=== PATIENT | female | born 1940 | race Native Hawaiian/Other Pacific Islander ===

== ENCOUNTER 2016-04-09 08:36 | Outpatient (CLI) | payer OTHER ==
[2016-04-09 09:19] LABS: PLATELET COUNT 231 K/uL (152-353)
[2016-04-09 10:01] LABS: POTASSIUM 5.8 mmol/L (3.6-5.2)
== END 2016-04-09 19:21 | disposition home or self-care (01) ==
LOC: LABW 08:36
PROVIDERS: Internal Medicine Nephrology
DX: I12.9 Hypertensive chronic kidney disease with stage 1 through stage 4 chronic kidney disease, or unspecified chronic kidney disease (principal); N18.4 Chronic kidney disease, stage 4 (severe); D63.1 Anemia in chronic kidney disease; D50.8 Other iron deficiency anemias
CPT/HCPCS: 36415; 80053; 81000; 82306; 82570; 82607; 82728; 82746; 83540; 83550; 83735; 83970; 84100; 84155; 85027; 85044

== ENCOUNTER 2016-04-12 08:51 | Outpatient (CLI) | payer OTHER | END 2016-04-12 09:51 | disposition home or self-care (01) | LOC: RESP 08:51 | DX: I35.8 Other nonrheumatic aortic valve disorders (principal); I10 Essential (primary) hypertension | CPT/HCPCS: 93306 ==

== ENCOUNTER 2016-05-04 08:34 | Outpatient (CLI) | payer OTHER ==
[2016-05-04 09:15] LABS: POTASSIUM 4.9 mmol/L (3.6-5.2)
== END 2016-05-04 19:08 | disposition home or self-care (01) ==
LOC: LABW 08:34
PROVIDERS: Internal Medicine
DX: R06.02 Shortness of breath (principal); Z79.899 Other long term (current) drug therapy; Z51.81 Encounter for therapeutic drug level monitoring
CPT/HCPCS: 36415; 80048; 83880; 84439; 84443; 85379

== ENCOUNTER 2016-05-07 09:21 | Outpatient (CLI) | payer OTHER | END 2016-05-07 19:52 | disposition home or self-care (01) | LOC: US 09:21 | DX: R10.9 Unspecified abdominal pain (principal) ==

== ENCOUNTER 2016-05-22 08:46 | Outpatient (CLI) | payer OTHER | END 2016-05-22 09:46 | disposition home or self-care (01) | LOC: LABW 08:46 | DX: K80.50 Calculus of bile duct without cholangitis or cholecystitis without obstruction (principal) | CPT/HCPCS: 36415; 80076 ==

== ENCOUNTER 2016-06-09 19:59 | Emergency (ER) | payer OTHER ==
[~2016-06-09] VITALS: Ht 165.1 cm; Wt 78.0 kg
[2016-06-09] MEDS ORDERED: FOLI1TAB26 PO (20:30)
[2016-06-09] MEDS ORDERED: HYDRALAZINE100 MG PO (20:31)
[2016-06-09] MEDS ORDERED: ALLO100T22 PO (20:31)
[2016-06-09] MEDS ORDERED: FERREX 150150 MG PO (20:32)
[2016-06-09] MEDS ORDERED: LEVOFLOXACIN500 MG OR (20:33)
[2016-06-09] MEDS ORDERED: BENZONATATE100 MG PO (20:33)
[2016-06-09] MEDS ORDERED: CARTIA XT240 MG/24 PO (20:34)
[2016-06-09] MEDS ORDERED: CITALOPRAM20 MG PO (20:35)
[2016-06-09 21:22] LABS: PLATELET COUNT 300 K/uL (152-353)
[2016-06-09 22:05] LABS: POTASSIUM 4.4 mmol/L (3.6-5.2)
[2016-06-09 23:53] VITALS: BP 140/68; TEMP 97.3
== END 2016-06-09 23:54 | disposition home or self-care (01) ==
LOC: ED 19:59
DX: R10.84 Generalized abdominal pain (principal); K59.09 Other constipation; R11.2 Nausea with vomiting, unspecified; N18.9 Chronic kidney disease, unspecified; M47.896 Other spondylosis, lumbar region; M12.812 Other specific arthropathies, not elsewhere classified, left shoulder; M12.811 Other specific arthropathies, not elsewhere classified, right shoulder
CPT/HCPCS: 36415; 80053; 81000; 84443; 85027; 96361; 96374; 99284; J2405

== ENCOUNTER 2016-07-09 14:59 | Outpatient (CLI) | payer OTHER ==
[~2016-07-09 14:59] MED LIST: ALLO100T22 PO; BENZONATATE100 MG PO; CARTIA XT240 MG/24 PO; CITALOPRAM20 MG PO; FERREX 150150 MG PO; FOLI1TAB26 PO; HYDRALAZINE100 MG PO; LEVOFLOXACIN500 MG OR
[2016-07-09 15:24] LABS: PLATELET COUNT 262 K/uL (152-353)
[2016-07-09 16:06] LABS: POTASSIUM 4.5 mmol/L (3.6-5.2)
== END 2016-07-09 15:59 | disposition home or self-care (01) ==
LOC: LABW 14:59
PROVIDERS: Internal Medicine Nephrology
DX: I12.9 Hypertensive chronic kidney disease with stage 1 through stage 4 chronic kidney disease, or unspecified chronic kidney disease (principal); N18.4 Chronic kidney disease, stage 4 (severe); D63.1 Anemia in chronic kidney disease; E11.22 Type 2 diabetes mellitus with diabetic chronic kidney disease
CPT/HCPCS: 36415; 80048; 82607; 82728; 82746; 83540; 83550; 85027; 85044

== ENCOUNTER 2016-07-13 08:55 | Outpatient (CLI) | payer OTHER ==
[2016-07-13 09:17] LABS: PLATELET COUNT 274 K/uL (152-353)
[2016-07-13 09:21] LABS: POTASSIUM 4.8 mmol/L (3.6-5.2)
== END 2016-07-13 19:07 | disposition home or self-care (01) ==
LOC: LABW 08:55
PROVIDERS: Internal Medicine Gastroenterology
DX: R11.2 Nausea with vomiting, unspecified (principal)
CPT/HCPCS: 36415; 80048; 80076; 82150; 83690; 85027

== ENCOUNTER 2016-09-06 08:54 | Outpatient (CLI) | payer OTHER | END 2016-09-06 19:15 | disposition home or self-care (01) | LOC: RAD 08:54 | DX: M19.041 Primary osteoarthritis, right hand (principal); M19.042 Primary osteoarthritis, left hand; M19.071 Primary osteoarthritis, right ankle and foot; M19.072 Primary osteoarthritis, left ankle and foot; M85.89 Other specified disorders of bone density and structure, multiple sites ==

== ENCOUNTER 2016-10-24 08:33 | Outpatient (CLI) | payer OTHER ==
[2016-10-24 08:58] LABS: PLATELET COUNT 275 K/uL (152-353)
[2016-10-24 09:09] LABS: POTASSIUM 5.7 mmol/L (3.6-5.2)
== END 2016-10-24 19:10 | disposition home or self-care (01) ==
LOC: LABW 08:33
PROVIDERS: Internal Medicine Nephrology
DX: I12.9 Hypertensive chronic kidney disease with stage 1 through stage 4 chronic kidney disease, or unspecified chronic kidney disease (principal); N18.4 Chronic kidney disease, stage 4 (severe); D64.89 Other specified anemias; N25.81 Secondary hyperparathyroidism of renal origin
CPT/HCPCS: 36415; 80053; 81000; 83735; 84100; 85027

== ENCOUNTER 2017-02-27 08:42 | Outpatient (CLI) | payer OTHER ==
[2017-02-27 09:50] LABS: PLATELET COUNT 233 K/uL (152-353)
[2017-02-27 10:42] LABS: POTASSIUM 5.1 mmol/L (3.6-5.2)
== END 2017-02-27 22:47 | disposition home or self-care (01) ==
LOC: US 08:42
PROVIDERS: Internal Medicine
DX: I12.9 Hypertensive chronic kidney disease with stage 1 through stage 4 chronic kidney disease, or unspecified chronic kidney disease (principal); N18.4 Chronic kidney disease, stage 4 (severe); D63.1 Anemia in chronic kidney disease; E03.8 Other specified hypothyroidism; E79.0 Hyperuricemia without signs of inflammatory arthritis and tophaceous disease; E04.1 Nontoxic single thyroid nodule; R82.99 Other abnormal findings in urine
CPT/HCPCS: 36415; 80053; 80061; 81000; 82306; 82570; 82607; 82728; 82746; 83540; 83550; 83735; 83970; 84100; 84155; 84439; 84443; 84550; 85027; 85044; 87086; 87088

== ENCOUNTER 2017-05-21 11:00 | Outpatient (CLI) | payer OTHER ==
[2017-05-21 11:23] LABS: PLATELET COUNT 201 K/uL (152-353)
[2017-05-21 12:44] LABS: POTASSIUM 4.5 mmol/L (3.6-5.2)
== END 2017-05-21 19:07 | disposition home or self-care (01) ==
LOC: LABW 11:00
PROVIDERS: Internal Medicine
DX: N18.3 Chronic kidney disease, stage 3 (moderate) (principal)
CPT/HCPCS: 36415; 80053; 81000; 82043; 82306; 82330; 82570; 83735; 83970; 84100; 84155; 84550; 85027

== ENCOUNTER 2017-10-04 08:28 | Outpatient (CLI) | payer OTHER ==
[2017-10-04 08:55] LABS: PLATELET COUNT 240 K/uL (152-353)
[2017-10-04 09:22] LABS: POTASSIUM 5.4 mmol/L (3.6-5.2)
== END 2017-10-04 19:05 | disposition home or self-care (01) ==
LOC: CT 08:28
PROVIDERS: Internal Medicine
DX: N18.4 Chronic kidney disease, stage 4 (severe) (principal); E07.89 Other specified disorders of thyroid; G44.211 Episodic tension-type headache, intractable
CPT/HCPCS: 36415; 80053; 81000; 82043; 82330; 82570; 83735; 83970; 84100; 84155; 84439; 84443; 85027

== ENCOUNTER 2018-01-21 17:46 | Emergency (ER) | payer OTHER ==
[~2018-01-21] VITALS: Ht 165.1 cm; Wt 76.2 kg
[2018-01-21] MEDS ORDERED: HYDRALAZINE50 MG PO (18:45)
[2018-01-21] MEDS ORDERED: LEVO0.0529 PO (18:46)
[2018-01-21] MEDS ORDERED: NEURONTIN 100M100 MG PO (18:47)
[2018-01-21] MEDS ORDERED: TRAMADOL HYDROC50 MG PO (18:48)
[2018-01-21 19:47] LABS: PLATELET COUNT 236 K/uL (152-353)
[2018-01-21 20:05] LABS: POTASSIUM 5.1 mmol/L (3.6-5.2)
[2018-01-21 21:25] VITALS: BP 140/57; TEMP 98.3
== END 2018-01-21 21:37 | disposition home or self-care (01) ==
LOC: ED 17:46
PROVIDERS: Family Medicine
DX: K59.09 Other constipation (principal); R10.84 Generalized abdominal pain; D72.828 Other elevated white blood cell count
CPT/HCPCS: 74022; 80053; 85027; 99284

== ENCOUNTER 2018-02-11 09:40 | Outpatient (CLI) | payer OTHER ==
[~2018-02-11 09:40] MED LIST changes: +HYDRALAZINE50 MG PO; +LEVO0.0529 PO; +NEURONTIN 100M100 MG PO; +TRAMADOL HYDROC50 MG PO
[2018-02-11 09:59] LABS: PLATELET COUNT 230 K/uL (152-353)
[2018-02-11 10:34] LABS: POTASSIUM 5.3 mmol/L (3.6-5.2)
== END 2018-02-11 22:15 | disposition home or self-care (01) ==
LOC: LABW 09:40
PROVIDERS: Internal Medicine
DX: N18.4 Chronic kidney disease, stage 4 (severe) (principal)
CPT/HCPCS: 36415; 80053; 82306; 83735; 83970; 84100; 85027

== ENCOUNTER 2018-04-22 07:23 | Day surgery (SDC) | payer OTHER ==
[~2018-04-22] VITALS: Ht 30.5 cm; Wt 0.5 kg
[2018-04-22 08:18] LABS: PLATELET COUNT 250 K/uL (152-353)
[2018-04-22 08:43] LABS: POTASSIUM 4.6 mmol/L (3.6-5.2)
== END 2018-04-22 10:50 | disposition home or self-care (01) ==
LOC: OR 07:23
PROVIDERS: Student in an Organized Health Care Education/Training Program
PROC: 0DBM8ZZ Excision of Descending Colon, Via Natural or Artificial Opening Endoscopic (ICD-10-PCS; principal; 2018-04-22)
DX: D12.4 Benign neoplasm of descending colon (principal); K57.30 Diverticulosis of large intestine without perforation or abscess without bleeding; K64.8 Other hemorrhoids; Z12.11 Encounter for screening for malignant neoplasm of colon; R19.4 Change in bowel habit
CPT/HCPCS: 80053; 85027; J2001; J2405; J2704

== ENCOUNTER 2018-04-25 09:26 | Outpatient (CLI) | payer OTHER | END 2018-04-25 20:24 | disposition home or self-care (01) | LOC: US 09:26 | DX: R09.89 Other specified symptoms and signs involving the circulatory and respiratory systems (principal); R55 Syncope and collapse ==

== ENCOUNTER 2018-05-06 09:34 | Outpatient (CLI) | payer OTHER | END 2018-05-06 19:07 | disposition home or self-care (01) | LOC: LABW 09:34 | DX: N18.4 Chronic kidney disease, stage 4 (severe) (principal); D64.9 Anemia, unspecified; E53.8 Deficiency of other specified B group vitamins | CPT/HCPCS: 36415; 82607; 82728; 82746; 83540; 83550 ==

== ENCOUNTER 2018-06-19 10:33 | Outpatient (CLI) | payer OTHER | END 2018-06-19 20:21 | disposition home or self-care (01) | LOC: RAD 10:33 | DX: R07.89 Other chest pain (principal) ==

== ENCOUNTER 2018-07-08 08:48 | Outpatient (CLI) | payer OTHER ==
[2018-07-08 09:02] LABS: PLATELET COUNT 225 K/uL (152-353)
[2018-07-08 09:18] LABS: POTASSIUM 5.3 mmol/L (3.6-5.2)
== END 2018-07-08 21:05 | disposition home or self-care (01) ==
LOC: LABW 08:48
PROVIDERS: Internal Medicine
DX: N18.4 Chronic kidney disease, stage 4 (severe) (principal)
CPT/HCPCS: 36415; 80053; 85027

== ENCOUNTER 2018-11-10 09:44 | Outpatient (CLI) | payer OTHER ==
[2018-11-10 10:29] LABS: PLATELET COUNT 172 K/uL (152-353)
[2018-11-10 10:54] LABS: POTASSIUM 5.5 mmol/L (3.6-5.2)
== END 2018-11-10 23:20 | disposition home or self-care (01) ==
LOC: LABW 09:44
PROVIDERS: Internal Medicine
DX: N18.4 Chronic kidney disease, stage 4 (severe) (principal)
CPT/HCPCS: 36415; 80053; 81000; 82043; 82330; 82570; 83735; 83970; 84100; 84155; 85027

== ENCOUNTER 2019-02-24 11:18 | Outpatient (CLI) | payer OTHER ==
[2019-02-24 11:30] LABS: PLATELET COUNT 225 K/uL (152-353)
[2019-02-24 13:25] LABS: POTASSIUM 4.9 mmol/L (3.6-5.2)
== END 2019-02-24 22:30 | disposition home or self-care (01) ==
LOC: LAB 11:18
PROVIDERS: Internal Medicine
DX: I10 Essential (primary) hypertension (principal); E79.0 Hyperuricemia without signs of inflammatory arthritis and tophaceous disease; E03.8 Other specified hypothyroidism; E78.00 Pure hypercholesterolemia, unspecified
CPT/HCPCS: 80053; 80061; 81000; 84439; 84443; 84550; 85027

== ENCOUNTER 2019-03-10 08:32 | Outpatient (CLI) | payer OTHER ==
[2019-03-10 09:15] LABS: POTASSIUM 5.3 mmol/L (3.6-5.2)
[2019-03-10 09:56] LABS: PLATELET COUNT 235 K/uL (152-353)
== END 2019-03-10 20:14 | disposition home or self-care (01) ==
LOC: LABW 08:32
PROVIDERS: Internal Medicine
DX: N18.4 Chronic kidney disease, stage 4 (severe) (principal); N25.81 Secondary hyperparathyroidism of renal origin; R53.83 Other fatigue; E53.8 Deficiency of other specified B group vitamins
CPT/HCPCS: 36415; 80053; 81000; 82306; 82330; 82570; 82607; 82746; 83735; 83970; 84100; 84155; 85027; 85651

== ENCOUNTER 2019-05-12 08:23 | Outpatient (CLI) | payer OTHER ==
[2019-05-12 09:21] LABS: POTASSIUM 5.5 mmol/L (3.6-5.2)
[2019-05-12 10:43] LABS: PLATELET COUNT 214 K/uL (152-353)
== END 2019-05-12 22:19 | disposition home or self-care (01) ==
LOC: LABW 08:23
PROVIDERS: Internal Medicine
DX: N18.4 Chronic kidney disease, stage 4 (severe) (principal); E03.8 Other specified hypothyroidism; D63.1 Anemia in chronic kidney disease; N25.81 Secondary hyperparathyroidism of renal origin; R53.83 Other fatigue
CPT/HCPCS: 36415; 80053; 81000; 82306; 82330; 82570; 82728; 83540; 83550; 83735; 83970; 84100; 84155; 84439; 84443; 85027

== ENCOUNTER 2020-04-05 13:51 | Outpatient (CLI) | payer OTHER ==
[2020-04-05 14:26] LABS: PLATELET COUNT 273 K/uL (152-353)
[2020-04-05 16:41] LABS: POTASSIUM 6.5 mmol/L (3.6-5.2)
== END 2020-04-05 23:00 | disposition home or self-care (01) ==
LOC: LAB 13:51
PROVIDERS: ATTEND Internal Medicine
DX: N18.4 Chronic kidney disease, stage 4 (severe) (principal); E03.8 Other specified hypothyroidism; D63.1 Anemia in chronic kidney disease; N25.81 Secondary hyperparathyroidism of renal origin; R53.83 Other fatigue; E79.0 Hyperuricemia without signs of inflammatory arthritis and tophaceous disease; E61.1 Iron deficiency
CPT/HCPCS: 80053; 80061; 81000; 82306; 82330; 82570; 82728; 83540; 83550; 83735; 83970; 84100; 84155; 84439; 84443; 84550; 85027